=== PATIENT | male | born 1940 | race Caucasian/White ===

== ENCOUNTER 2018-03-28 08:51 | Emergency (ER) | payer MEDICARE, BC ==
[~2018-03-28] VITALS: Ht 172.7 cm; Wt 72.6 kg
[2018-03-28] MEDS ORDERED: ONDANSETRON 4 MG/2 ML VIAL IV ONE (09:15)
[2018-03-28] MEDS ORDERED: IV NORMAL SALINE 500 ML BAG IV ONE (09:15)
[2018-03-28] MEDS ORDERED: ONDANSETRON 4 MG/2 ML VIAL ONE (09:20)
[2018-03-28 09:21] LABS: BASOPHILS % (AUTO) 0.6 % (0.0-2.0); EOSINOPHILS # (AUTO) 0.1 K/uL (0.0-0.7); EOSINOPHILS % (AUTO) 1.3 % (0.0-7.0); HEMATOCRIT 42.1 % (36.7-47.1); HEMOGLOBIN 14.9 g/dL (12.5-16.3); LYMPHOCYTES # (AUTO) 1.1 K/uL (20.0-40.0); LYMPHOCYTES % (AUTO) 23.7 % (20.5-51.5); MEAN CORPUSCULAR HEMOGLOBIN 33.1 uug (23.8-33.4); MEAN CORPUSCULAR HGB CONC 35 g/dL (32.5-36.3); MEAN CORPUSCULAR VOLUME 93.6 fL (73.0-96.2); MONOCYTES # (AUTO) 0.4 K/uL (2.0-10.0); MONOCYTES % (AUTO) 8.3 % (0.0-11.0); NEUTROPHILS # (AUTO) 3.1 K/uL (1.8-8.9); NEUTROPHILS % (AUTO) 66.1 % (38.5-71.5); PLATELET COUNT (AUTO) 132 K/uL (152-348); WHITE BLOOD COUNT (AUTO) 4.7 K/uL (3.6-10.2)
[2018-03-28 09:30] LABS: CARBON DIOXIDE 27 mmol/L (21-32); CHLORIDE 107 mmol/L (98-107); CREATININE 1.5 mg/dL (0.6-1.3); GLUCOSE 114 mg/dL (74-106); POTASSIUM 4.7 mmol/L (3.5-5.1); UREA NITROGEN, BLOOD 21 mg/dL (7-18)
[2018-03-28 09:37] LABS: ALANINE AMINOTRANSFERASE 31 U/L (16-63); ALKALINE PHOSPHATASE 87 U/L (50-136); ASPARTATE AMINOTRANSFERASE 20 U/L (15-37); BILIRUBIN,DIRECT 0.3 mg/dL (0.0-0.2); BILIRUBIN,TOTAL 1.1 mg/dL (0.2-1.0); LIPASE 329 U/L (73-393); TOTAL PROTEIN, SERUM 7.2 g/dL (6.4-8.2)
[2018-03-28] MEDS ORDERED: MECLIZINE HCL 25 MG TABLET ONE (10:10)
[2018-03-28] MEDS ORDERED: MECLIZINE HCL 25 MG TABLET PO ONE (10:15)
[2018-03-28] MEDS ORDERED: ASPIRIN 81 MG TAB.CHEW ONE (10:26)
[2018-03-28] MEDS ORDERED: ASPIRIN 81 MG TAB.CHEW PO ONE (10:30)
--- NOTE | 2018-03-28 10:31 | NUR ---
Patient is resting comfortably in bed with eyes closed. Family are at bedside.
--- NOTE | 2018-03-28 11:20 | NUR ---
IV removed. Catheter intact and site benign. Pressure and 4x4 gauze applied to site. No bleeding noted. Patient discharged to home in stable conditon & steady gait. Written and verbal after care instructions given to patient and spouse. Patient and spouse verbalized understanding of instructions. Copies of all tests results were given to patient. Patient says that he feels much better.
[2018-03-28 11:30] LABS: *BILIRUBIN,URIN NEGATIVE (NEGATIVE); *BLOOD, URINE Trace-intact (NEGATIVE); *CLARITY,URINE CLEAR (CLEAR); *COLOR,URINE YELLOW (YELLOW); *KETONES,URINE NEGATIVE (NEGATIVE); *PROTEIN,URINE NEGATIVE (NEGATIVE); *UROBILINOGEN,URINE 0.2 E.U./dl (NORMAL); LEUKOCYTE ESTERASE ,URINE NEGATIVE (NEGATIVE); NITRITE, URINE NEGATIVE (NEGATIVE); UGLUCOSE NEGATIVE (NEGATIVE)
[2018-03-28 11:40] LABS: BACTERIA,URINE NONE SEEN /HPF (NONE SEEN); MUCUS,URINE FEW /LPF (0-FEW); SQUAMOUS EPITHELIAL CELL,UR FEW /HPF (NONE SEEN); WBC,URINE 0-3 /HPF (0-3)
== END 2018-03-28 11:25 | disposition home or self-care (01) ==
LOC: ER 08:53
DX: H83.09 Labyrinthitis, unspecified ear (principal); I10 Essential (primary) hypertension
CPT/HCPCS: 36415; 70030-TC; 70450; 71045; 83690; 85025; 85730; 93005; A4663; J2405; J7040; J8597